=== PATIENT | male | born 1990 | race Caucasian/White ===

== ENCOUNTER → 2017-12-12 | Outpatient (CLI) | payer MEDICAID ==
--- NOTE | 2017-12-12 16:31 | RADIOLOGY REPORT (SQ) ---
EXAM DESCRIPTION: KUB/ABDOMEN (SINGLE VIEW) COMPLETED DATE/TIME: 12/12/2017 3:45 pm REASON FOR STUDY: K59.01 SLOW TRANSIT CONSTIPATION R15.9 FULL INCONTINENCE OF FECES K59.01 SLOW TRA NSIT CONSTIPATION R15.9 FULL INCONTINENCE OF FECES R15.1 FECAL SMEARING COMPARISON: None. NUMBER OF VIEWS: One view. TECHNIQUE: Supine radiographic image of the abdomen acquired. LIMITATIONS: None. FINDINGS: BOWEL GAS PATTERN: No bowel dilatation. Nonobstructive appearance with moderate fecal mat erial. CALCIFICATIONS: No suspicious calcifications. SOFT TISSUES: Possible distention urinary bladder. HARDWARE: None in the abdomen. BONES: No acute fracture. No worrisome bone lesions. OTHER: No other significant finding. IMPRESSION: No bowel dilatation. Nonobstructive appearance with moderate fecal material. COMMENT: Possible distention urinary bladder. TECHNICAL DOCUMENTATION: JOB ID: [id number] [employer]- All Rights Reserved Reading location - IP/workstation name: [email or web address]
== END ==
LOC: RAD 15:31
PROVIDERS: ATTEND Internal Medicine Gastroenterology
DX: K59.01 Slow transit constipation (principal); R15.9 Full incontinence of feces; R15.1 Fecal smearing
CPT/HCPCS: 74018